=== PATIENT | male | born 1960 | race Caucasian/White ===

== ENCOUNTER 2024-11-04 09:44 | Day surgery (SDC) | payer MEDICARE ==
[2024-11-03 09:52] VITALS: BMI 29.8
[2024-11-04 10:14] VITALS: RESP 16; TEMP 96.9
[2024-11-04] MEDS: IV FLUID CONTINUATION 1,000 ML IV ONE (10:14)
[2024-11-04] MEDS: LACTATED RINGERS 1,000 ML IV SCH (10:20)
[2024-11-04 10:21] LABS: Glucose,Whole Blood 117 mg/dL (70-110)
[2024-11-04] MEDS ORDERED: PROPOFOL 10 MG/ML 20 ML VIAL IV ONE (10:55)
--- NOTE | 2024-11-04 11:16 | P.PCN ---
Date of Procedure: 11/04/24 Procedure(s) Performed: BRIEF HISTORY: Patient is a 64-year-old pleasant white male scheduled for an elective colonoscopy as a part of screening for colon cancer. PROCEDURE PERFORMED: Colonoscopy with biopsy. PREOPERATIVE DIAGNOSIS: Screening for colon cancer. IV sedation per Anesthesia. PROCEDURE: After informed consent was obtained, the patient, was brought into the endoscopy unit. IV sedation was administered by Anesthesia under continuous monitoring. Digital rectal examination was normal. Initially the Olympus CF-160 flexible video colonoscope was then inserted in the rectum, gradually advanced into the cecum without any difficulty. Careful examination was performed as the scope was gradually being withdrawn. Ileocecal valve and the appendiceal orifice were visualized and appeared normal. Prep was excellent. Mucosa of the cecum appeared normal. The ascending colon there was a 3 mm polyp that was removed by cold biopsy. Rest of, ascending colon, transverse colon, descending colon, sigmoid colon, and rectum appeared normal. Retroflexion was performed in the rectum and there was a 4 mm distal rectal polyp that was removed by cold biopsy.. The patient tolerated the procedure well. IMPRESSION: 3 mm ascending colon polyp status post cold biopsy 4 mm rectal polyp status post cold biopsy Rest of the colon appeared normal RECOMMENDATIONS: Findings of this examination were discussed with the patient as well as his family. He was advised to follow-up with the biopsy results. If the biopsy was adenoma he can have repeat colonoscopy in 5 years..
[2024-11-04 12:02] VITALS: BP 124/80; PULSE 52
== END 2024-11-04 11:49 | disposition home or self-care (01) ==
LOC: ORWHC2ENDO 09:44
PROVIDERS: ATTEND Internal Medicine Gastroenterology
DX: Z12.11 Encounter for screening for malignant neoplasm of colon (principal); K62.1 Rectal polyp; K63.5 Polyp of colon; I10 Essential (primary) hypertension; E78.5 Hyperlipidemia, unspecified; F17.210 Nicotine dependence, cigarettes, uncomplicated; Z89.512 Acquired absence of left leg below knee; Z79.02 Long term (current) use of antithrombotics/antiplatelets; Z79.899 Other long term (current) drug therapy
CPT/HCPCS: 45380; J2704; 88305